=== PATIENT | female | born 1990 | race Caucasian/White ===

== ENCOUNTER 2017-03-24 00:10 | Emergency (ER) | payer SELFPAY ==
[2017-03-24 00:53] VITALS: BP 127/69; BMI 34.7
[2017-03-24] MEDS ORDERED: LEVSIN/MAALOX/LIDOC VISC PO ONE (02:40)
--- NOTE | 2017-03-24 02:44 | DR.GENAD ---
HPI - PCP Primary Care Physician: NLD - Complaint/Symptoms Chief Complaint Doctors Comments: Patient complains of epigastric gas pain earlier tonight that has gotten better since coming to the emergency room. states she was having sharp pain in the epigastric area that radiates to the right rib with pain being 3 0f 10 presently that was 6 of 10 when she got to the emergency room. States she has had pain like this before and it was gas. States she is unsure of her last period and that she does not know if she is . She denies dysuria, hematuria, cold, cough, fever or chills. Chief Complaint:: Patient states "I am pretty sure that it is gas. This is the third time that this has happened in the past 3 days. It was so bad earlier that I couldn't breathe. I can move it around. It feels a little better but it' s not going away. It hurts worse when I take a deep breath. Self Treatment fo Chief Complaint: I have been trying to "burp and fart" but it doesn't really help. I have tried drinking soda but that didn't help either. Patient stated that she has had 2 episodes of nausea and vomiting with pain. - Nurses notes reviewed Nurses Notes Review: Yes - Source History Provided: Patient - Mode of Arrival Mode of Arrival: Ambulatory - Timing Onset of Chief Complaint: 03/24/17 Came on: Gradually - Duration Duration: Intermittent How lon Duration: Hours - Location Location: epigastric and RUQ pain - Severity Severity: Moderate - Modifying Factors Worsens:: nothing Improves:: nothing PMH - PMH Past Medical History: No Past Surgical History: Yes Surgical History: Past Surgical History Comment: x 2 - Family History History of Family Medical Conditions: Yes Family Medical History: Hypertension - Social History Does patient currently use any type of tobacco product: Yes Have you used tobacco products in the last 12 months: Yes Type of Tobacco Use: Cigarettes Does any household member use tobacco: No Alcohol Use: None Do you use any recreational Drugs:: No Lives With: Family Lives Where: Home - infectious screening In the last 2 months have you had wt loss of >10#?: NO Have you had fever, night sweats or hemotysis?: No Have you traveled outside the country in the last 6 months?: No Isolation: Standard ROS - Review of Systems Constitutional: No Symptoms Reported Eyes: No Symptoms Reported ENTM: No Symptoms Reported Respiratoy: No Symptoms Reported Cardiovascular: No Symptoms Reported Gastrointestinal/Abdominal: No Symptoms Reported, Abdominal Pain (epigastric pain) Genitourinary: No Symptoms Reported. negative: See HPI, Discharge, Dysuria, Frequency, Hematuria, Pain, Bleeding, Other Neurological: No Symptoms Reported Musculoskeletal: No Symptoms Reported Integumentary: No Symptoms Reported Hematologic/Lymphatic: No Symptoms Reported Endocrine: No Symptoms Reported Psychiatric: No Symptoms Reported. negative: See HPI, Anxiety, Depression, Hallucinations, Excessive crying, Suicidal, Other PE - Vital Signs Vitals: Temperature 98.9 F Pulse Rate 54 Respiratory Rate 20 Blood Pressure 127/69 O2 Sat by Pulse Oximetry 97 - General Limitations: No Limitations General Appearance: Alert, In Distress (mild) - Head Head Exam: Normal Inspection, Atraumatic, Normocephalic - Eyes Eye exam: Normal Appearance, PERRL, EOMI. negative: Scleral Icterus, Conjunctival Injection, Nystagmus, Miosis, Mydrasis, Periorbital Swelling, Periorbital Tenderness, Other - ENT ENT Exam: Normal Exam, Normal Oropharynx, Normal External Ear Exam, Mucous Membranes Moist, TM's Normal Bilaterally External Ear Exam: Normal External Inspection TM/Canal Exam: Bilateral Normal Nose Exam: Normal Nose Exam Mouth Exam: Normal Inspection Throat Exam: Normal Inspection. negative: Tonsillar Erythema, Tonsillomegaly, Tonsillar Exudate, R Peritonsillar Mass, L Peritonsillar Mass, Muffled Voice, Other - Neck Neck Exam: Normal Inspection, Full ROM, Trachea Midline. negative: Tenderness, Meningismus, Lymphadenopathy, Thyromegaly, Other - Chest Chest Inspection: Normal Inspection, Symmetric Chest Wall Rise. negative: Tenderness, Rash, Abscess, Other - Respiratory Respiratory Exam: Normal Lung Sounds Bilat Respiratory Exam: Bilateral Clear to Auscultation - Cardiovascular Cardiovascular Exam: Regular Rate, Normal Rhythm, Normal Heart Sounds. negative : Bradycardia, Tachycardia, Irregular Rhythm, Systolic Murmur, Diastolic Murmur , Rubs, Gallop, Clicks, JVD, +S1, +S2, +S3, +S4, Other - Abdominal Exam Abdominal Exam: Normal Inspection, Normal Bowel Sounds, Soft, Tenderness ( epigastric tenderness) Abdominal Tenderness: Epigastrium, Suprapubic, Mild - Extremities Extremities Exam: Normal Inspection, Full ROM, Normal Capillary Refill. negative: Tenderness, Edema, Joint Swelling, Calf Tenderness, Other - Back Back Exam: Normal Inspection, Full ROM. negative: Tenderness, (R) CVA Tenderness, (L) CVA Tenderness, Muscle Spasm, Paraspinal Tenderness, Vertebral Tenderness, Rashes, (R) Sciatic Notch Tenderness, (L) Sciatic Notch Tendern, (R ) Straight Leg Raise, (L) Straight Leg Raise, Other - Neurologic Neurological Exam: Alert, Oriented X3, CN II-XII Intact, Normal Gait, Reflexes Normal - Psychiatric Psychiatric Exam: Normal Affect, Normal Mood. negative: Depressed, Agitated, Anxious, Flat Affect, Manic, Homicidal Ideation, Suicidal Ideation, Other - Skin Skin Exam: Warm, Dry, Intact, Normal Color ROR - Labs Reviewed Laboratory Results Reviewed?: Yes (All labs and x-ray results reviewed and discussed with patient) Result Diagrams: 03/24/17 02:55 03/24/17 02:55 Laboratory: WBC 9.9 X10^3/uL (3.6-10.0) 03/24/17 02:55 RBC 4.45 X10^6/uL (3.5-5.4) 03/24/17 02:55 Hgb 12.7 g/dL (12.0-16.0) 03/24/17 02:55 Hct 37.3 % (36.0-47.0) 03/24/17 02:55 MCV 83.8 fL (80.0-100.0) 03/24/17 02:55 MCH 28.5 pg (27.0-34.0) 03/24/17 02:55 MCHC 34.0 g/dL (33.0-35.0) 03/24/17 02:55 RDW 13.6 % (11.6-16.5) 03/24/17 02:55 Plt Count 180 X10^3/uL (150.0-450.0) 03/24/17 02:55 MPV 10.3 fL (7.4-11.0) 03/24/17 02:55 Neut % 63.6 % (42.0-75.0) 03/24/17 02:55 Lymph % 27.5 % (21.0-51.0) 03/24/17 02:55 [place] % 4.5 % (0.0-13.0) 03/24/17 02:55 Eos % 3.1 % (0.9-2.9) H 03/24/17 02:55 Baso % 1.3 % (0.2-1.0) H 03/24/17 02:55 Neut # 6.3 x10^3/uL (2.2-4.8) H 03/24/17 02:55 Lymph # 2.7 X10^3/uL (1.3-2.9) 03/24/17 02:55 [place] # 0.4 x10^3/uL (0.3-0.8) 03/24/17 02:55 Eos # 0.3 x10^3/uL (0.0-0.2) H 03/24/17 02:55 Baso # 0.1 X10^3/uL (0.0-0.1) 03/24/17 02:55 Absolute Nucleated RBC 0.0 /100WBC 03/24/17 02:55 Sodium 142 mmol/L (136-145) 03/24/17 02:55 Corrected Sodium TNP 03/24/17 02:55 Potassium 4.3 mmol/L (3.5-5.1) 03/24/17 02:55 Chloride 107 mmol/L (98-107) 03/24/17 02:55 Carbon Dioxide 28.8 mmol/L (21-32) 03/24/17 02:55 BUN 8 mg/dL (7-18) 03/24/17 02:55 Creatinine 0.62 mg/dL (0.55-1.02) 03/24/17 02:55 Est GFR (MDRD) Af Amer > 60 (>60) 03/24/17 02:55 Est GFR (MDRD) Non-Af > 60 (>60) 03/24/17 02:55 Glucose 90 mg/dL (65-99) 03/24/17 02:55 Calcium 8.8 mg/dL (8.5-10.1) 03/24/17 02:55 Corrected Calcium TNP 03/24/17 02:55 Total Bilirubin 0.40 mg/dL (0.2-1.0) 03/24/17 02:55 AST 14 Units/L (15-37) L 03/24/17 02:55 ALT 21 Units/L (12-78) 03/24/17 02:55 Alkaline Phosphatase 67 Units/L (46-116) 03/24/17 02:55 Total Protein 6.8 g/dL (6.4-8.2) 03/24/17 02:55 Albumin 3.8 g/dL (3.4-5.0) 03/24/17 02:55 Globulin 3.0 g/dL (2.5-4.5) 03/24/17 02:55 Albumin/Globulin Ratio 1.3 Ratio (1.1-2.1) 03/24/17 02:55 Amylase 45 Units/L (25-115) 03/24/17 02:55 Lipase 110 Units/L (73-393) 03/24/17 02:55 HCG, Qual Negative <10 mIU/mL 03/24/17 02:55 H. pylori IgG Antibody Positive (NEGATIVE) A 03/24/17 02:55 - XRAY XRAY Interpreted by: Radiologist (Abdominal series: No acute abdominal pathology identified ) - Diagnosis Discharge Problem: Helicobacter positive gastritis Abdominal pain Qualifiers: Abdominal location: epigastric Qualified Code(s): R10.13 - Epigastric pain - Discharge Plan Disposition: 01 HOME, SELF-CARE Condition: Stable Prescriptions: Bismuth Subsalicylate [Pepto-Bismol] 262 mg PO QID PRN #120 [place] PRN Reason: Metronidazole [FLAGYL 500 MG *] 500 mg PO TID PRN #42 tab PRN Reason: Ranitidine HCl [ZANTAC TAB 150 MG *] 150 mg PO BID #60 tab Tetracycline HCl 500 mg PO TID PRN #42 cap PRN Reason: - Follow ups/Referrals Follow ups/Referrals: NFD,None [Primary Care Provider] - 3 days GRACIELA LAURENT [STAFF PHYSICIAN] - 3 days - Instructions Instructions: Gastritis, Adult, [id number], Abdominal Pain, Adult, Easy-to- Read, Helicobacter Pylori Antibodies Test
[2017-03-24 03:04] LABS: BASOPHILS # (AUTO) 0.1 X10^3/uL (0.0-0.1); BASOPHILS % (AUTO) 1.3 % (0.2-1.0); EOSINOPHILS # (AUTO) 0.3 x10^3/uL (0.0-0.2); EOSINOPHILS % (AUTO) 3.1 % (0.9-2.9); HEMATOCRIT 37.3 % (36.0-47.0); HEMOGLOBIN 12.7 g/dL (12.0-16.0); LYMPHOCYTES # (AUTO) 2.7 X10^3/uL (1.3-2.9); LYMPHOCYTES % (AUTO) 27.5 % (21.0-51.0); MEAN CORPUSCULAR HEMOGLOBIN 28.5 pg (27.0-34.0); MEAN CORPUSCULAR VOLUME 83.8 fL (80.0-100.0); MEAN PLATELET VOLUME 10.3 fL (7.4-11.0); MONOCYTES # (AUTO) 0.4 x10^3/uL (0.3-0.8); MONOCYTES % (AUTO) 4.5 % (0.0-13.0); NEUTROPHILS # (AUTO) 6.3 x10^3/uL (2.2-4.8); NEUTROPHILS % (AUTO) 63.6 % (42.0-75.0); PLATELET COUNT 180 X10^3/uL (150.0-450.0); RED BLOOD COUNT 4.45 X10^6/uL (3.5-5.4); RED CELL DISTRIBUTION WIDTH 13.6 % (11.6-16.5); WHITE BLOOD COUNT 9.9 X10^3/uL (3.6-10.0)
[2017-03-24 03:08] LABS: SERUM PREGNANCY TEST, QUAL NEGATIVE <10 mIU/mL
[2017-03-24 03:15] LABS: ALANINE AMINOTRANSFERASE 21 Units/L (12-78); ALBUMIN 3.8 g/dL (3.4-5.0); ALKALINE PHOSPHATASE 67 Units/L (46-116); AMYLASE 45 Units/L (25-115); ASPARTATE AMINO TRANSFERASE 14 Units/L (15-37); BLOOD UREA NITROGEN 8 mg/dL (7-18); CALCIUM 8.8 mg/dL (8.5-10.1); CARBON DIOXIDE 28.8 mmol/L (21-32); CHLORIDE 107 mmol/L (98-107); CREATININE 0.62 mg/dL (0.55-1.02); GLUCOSE 90 mg/dL (65-99); LIPASE 110 Units/L (73-393); SODIUM 142 mmol/L (136-145); TOTAL PROTEIN 6.8 g/dL (6.4-8.2); eGFR BLACK RACES > 60 (>60); eGFR NON BLACK RACES > 60 (>60)
--- NOTE | 2017-03-24 03:57 | RAD ---
Abdominal series with single view chest Indication: Right upper quadrant abdominal pain Comparison: None Findings: The cardiac silhouette is unremarkable. The lungs are clear. The bowel gas pattern is norm al. No free air identified. The liver appears enlarged, although this may be projectional. Impression: No acute abdominal pathology identified. Possible hepatomegaly. Consider right upper quadrant ultrasound if there is concern for cholecystitis and to evaluate for h epatomegaly, as indicated. Reported By:
== END 2017-03-24 05:00 | disposition home or self-care (01) ==
LOC: ER 00:10
DX: R10.13 Epigastric pain (principal); B96.81 Helicobacter pylori [H. pylori] as the cause of diseases classified elsewhere
CPT/HCPCS: 36415; 74022; 80053; 82150; 83690; 84703; 85025; 86677; 99283

== ENCOUNTER 2017-03-29 03:49 | Emergency (ER) | payer MEDICAID ==
[2017-03-29] MEDS ORDERED: TORADOL 30 MG VIAL IM ONE (04:04)
--- NOTE | 2017-03-29 04:05 | DR.GENAD ---
HPI - PCP Primary Care Physician: NFD - Complaint/Symptoms Chief Complaint Doctors Comments: Patient was diagnosed with H pylori gastritis on 03.24.17 she states that she is taking medication given to by Yonis WILKINS. Her stomach is still hurting although she is taking the medication. Chief Complaint:: "I was diagnosed the other day with H-pylori and I have been having pain in my stomach. I came to the ER the other day about it but they forgot about me. I was here for 5 hours so I left. Tonight I was woke up from chest pain and abdomen pain that was way worse than before." - Source History Provided: Patient - Mode of Arrival Mode of Arrival: Stretcher - Timing Onset of Chief Complaint: 03/22/17 PMH - PMH Past Medical History: No Past Surgical History: Yes Surgical History: - Family History History of Family Medical Conditions: Yes Family Medical History: Hypertension - Social History Does patient currently use any type of tobacco product: Yes Have you used tobacco products in the last 12 months: Yes Type of Tobacco Use: Cigarettes Alcohol Use: None Do you use any recreational Drugs:: No Lives With: Significant Other Lives Where: Home - infectious screening In the last 2 months have you had wt loss of >10#?: NO Have you had fever, night sweats or hemotysis?: No Have you traveled outside the country in the last 6 months?: No Isolation: Standard ROS - Review of Systems Eyes: No Symptoms Reported ENTM: No Symptoms Reported Respiratoy: No Symptoms Reported Cardiovascular: No Symptoms Reported Gastrointestinal/Abdominal: Abdominal Pain Genitourinary: No Symptoms Reported Neurological: No Symptoms Reported Musculoskeletal: No Symptoms Reported Integumentary: No Symptoms Reported Hematologic/Lymphatic: No Symptoms Reported Endocrine: No Symptoms Reported Psychiatric: No Symptoms Reported All Other Systems: Reviewed and Negative PE - Vital Signs Vitals: Temperature 98.2 F Pulse Rate 62 Respiratory Rate 22 Blood Pressure 139/89 O2 Sat by Pulse Oximetry 100 - General Limitations: No Limitations General Appearance: Alert, In No Apparent Distress - Eyes Eye exam: Normal Appearance, PERRL, EOMI - ENT ENT Exam: Normal Exam External Ear Exam: Normal External Inspection TM/Canal Exam: Bilateral Normal Nose Exam: Normal Nose Exam Mouth Exam: Normal Inspection Throat Exam: Normal Inspection - Neck Neck Exam: Normal Inspection, Full ROM - Chest Chest Inspection: Normal Inspection - Respiratory Respiratory Exam: Normal Lung Sounds Bilat Respiratory Exam: Bilateral Clear to Auscultation - Cardiovascular Cardiovascular Exam: Regular Rate, Normal Rhythm - Abdominal Exam Abdominal Exam: Normal Inspection Abdominal Tenderness: negative: RUQ, RLQ, LUQ, LLQ, Epigastrium, Suprapubic, Diffuse, Mild, Moderate, Severe, Other - Extremities Extremities Exam: Normal Inspection - Back Back Exam: Normal Inspection, Full ROM - Neurologic Neurological Exam: Alert, Oriented X3, CN II-XII Intact - Psychiatric Psychiatric Exam: Agitated - Skin Skin Exam: Warm, Dry, Intact - Diagnosis Discharge Problem: Helicobacter positive gastritis - Discharge Plan Condition: Stable - Follow ups/Referrals Follow ups/Referrals: NFD,None [Primary Care Provider] - 3 days - Instructions
[2017-03-29] MEDS ORDERED: TORADOL 30 MG VIAL ONE (04:06)
[2017-03-29 04:07] VITALS: BP 139/89; BMI 35.6
== END 2017-03-29 04:18 | disposition home or self-care (01) ==
LOC: ER 03:49
DX: R10.84 Generalized abdominal pain (principal); B96.81 Helicobacter pylori [H. pylori] as the cause of diseases classified elsewhere
CPT/HCPCS: 96374; 96375; 99282; 99283; J1885

== ENCOUNTER 2017-05-14 09:03 | Emergency (ER) | payer MEDICAID ==
[2017-05-14 09:05] VITALS: BP 135/76; BMI 34.7
--- NOTE | 2017-05-14 09:40 | ED.ABDFE ---
HPI - Time seen Time seen: 09:30 - PCP Primary Care Physician: LIBBY - HPI Comment HPI Comment: worse today. may be due to h pylori. was recently treated for h pylori. no fever or dysuria. - Complaint Chief Complaint Doctors Comments: epigastric and upper abdominal pain with nausea times one day. Chief Complaint:: PT. C/O EPIGASTRIC PAIN. SHE STATES SHE HAD H. PYLORI ABOUT A MONTH AGO AND WAS TREATED. SHE THINKS SHE MAY HAVE IT AGAIN. - Nurses notes reviewed Nurses Notes Review: Yes - Source History Provided: Patient - Mode of arrival Mode of Arrival: Ambulatory - Timing Onset of Chief Complaint: 05/13/17 Came on: Suddenly - Duration Duration: Constant Duration: Days - Location Location: RUQ, LUQ, Epigastric - Severity Severity: Moderate - Quality Quality: Sharp - Context Onset: Suddenly History of: Similar pain (dx) - Modifying Worsening Factors: Nothing Improving Factors: Nothing - Associated signs and symptoms Associated Signs and Symptoms: Nausea PMH - PMH Past Medical History: No Past Surgical History: Yes Surgical History: - Family History History of Family Medical Conditions: Yes Family Medical History: Hypertension - Social History Does patient currently use any type of tobacco product: Yes Have you used tobacco products in the last 12 months: Yes Type of Tobacco Use: Cigarettes Does any household member use tobacco: No Alcohol Use: None Do you use any recreational Drugs:: No Lives With: Significant Other Lives Where: Home - infectious screening In the last 2 months have you had wt loss of >10#?: NO Have you had fever, night sweats or hemotysis?: No Have you traveled outside the country in the last 6 months?: No Isolation: Standard ROS - Review of Systems Constitutional: No Symptoms Reported Eyes: No Symptoms Reported ENTM: No Symptoms Reported Respiratoy: No Symptoms Reported Cardiovascular: No Symptoms Reported Gastrointestinal/Abdominal: Abdominal Pain, Nausea, Vomiting Genitourinary: No Symptoms Reported. negative: Dysuria, Frequency, Hematuria Neurological: No Symptoms Reported Musculoskeletal: No Symptoms Reported Integumentary: No Symptoms Reported Hematologic/Lymphatic: No Symptoms Reported Endocrine: No Symptoms Reported All Other Systems: Reviewed and Negative PE - Vital Signs Vitals: Temperature 97.6 F Pulse Rate 66 Respiratory Rate 22 Blood Pressure 135/76 O2 Sat by Pulse Oximetry 100 - General Limitations: No Limitations General Appearance: Alert - Head Head Exam: Normal Inspection - Eyes Eye exam: Normal Appearance - ENT ENT Exam: Normal External Ear Exam - Neck Neck Exam: Trachea Midline - Chest Chest Inspection: Symmetric Chest Wall Rise - Respiratory Respiratory Exam: Normal Lung Sounds Bilat Respiratory Exam: Bilateral Clear to Auscultation - Cardiovascular Cardiovascular Exam: Regular Rate, Normal Rhythm, Normal Heart Sounds - Abdominal Exam Abdominal Exam: Normal Bowel Sounds, Soft, Tenderness Abdominal Tenderness: RUQ, LUQ, Epigastrium, Moderate - Rectal Rectal Exam: Deferred - Back Back Exam: Normal Inspection - Extremeties Extremities Exam: Normal Inspection - External Exam: Female: Deferred : Speculum Exam (Female): Deferred : Bimanual Exam (female): Deferred - Neurologic Neurological Exam: Alert, Oriented X3 - Psychiatric Psychiatric Exam: Normal Affect, Normal Mood - Skin Skin Exam: Normal Color MDM - Differential Diagnosis Differential Diagnosis- Considerations may include:: Bowel Obstruction, Cholcystitis, Cholelethiasis, Diverticular disease, Gastritus/PUD, Inflammatory BD, Ovarian cyst/torsion, Pancreatitis, Urinary tract infection, Urolithiasis Course - Treatment Treatment: SEE ORDERS - Education/Counseling Education/Counseling: Patient, Education Educated On: Diagnosis, Needs for Follow Up ROR - Labs Reviewed Laboratory Results Reviewed?: Yes Result Diagrams: 05/14/17 09:55 05/14/17 09:55 Laboratory: WBC 5.3 X10^3/uL (3.6-10.0) 05/14/17 09:55 RBC 4.89 X10^6/uL (3.5-5.4) 05/14/17 09:55 Hgb 13.9 g/dL (12.0-16.0) 05/14/17 09:55 Hct 40.8 % (36.0-47.0) 05/14/17 09:55 MCV 83.4 fL (80.0-100.0) 05/14/17 09:55 MCH 28.5 pg (27.0-34.0) 05/14/17 09:55 MCHC 34.2 g/dL (33.0-35.0) 05/14/17 09:55 RDW 13.2 % (11.6-16.5) 05/14/17 09:55 Plt Count 175 X10^3/uL (150.0-450.0) 05/14/17 09:55 MPV 10.7 fL (7.4-11.0) 05/14/17 09:55 Neut % 52.5 % (42.0-75.0) 05/14/17 09:55 Lymph % 35.9 % (21.0-51.0) 05/14/17 09:55 [place] % 7.3 % (0.0-13.0) 05/14/17 09:55 Eos % 3.4 % (0.9-2.9) H 05/14/17 09:55 Baso % 0.9 % (0.2-1.0) 05/14/17 09:55 Neut # 2.8 x10^3/uL (2.2-4.8) 05/14/17 09:55 Lymph # 1.9 X10^3/uL (1.3-2.9) 05/14/17 09:55 [place] # 0.4 x10^3/uL (0.3-0.8) 05/14/17 09:55 Eos # 0.2 x10^3/uL (0.0-0.2) 05/14/17 09:55 Baso # 0.0 X10^3/uL (0.0-0.1) 05/14/17 09:55 Absolute Nucleated RBC 0.1 /100WBC 05/14/17 09:55 Sodium 139 mmol/L (136-145) 05/14/17 09:55 Corrected Sodium TNP 05/14/17 09:55 Potassium 4.3 mmol/L (3.5-5.1) 05/14/17 09:55 Chloride 107 mmol/L (98-107) 05/14/17 09:55 Carbon Dioxide 28.6 mmol/L (21-32) 05/14/17 09:55 BUN 14 mg/dL (7-18) 05/14/17 09:55 Creatinine 0.59 mg/dL (0.55-1.02) 05/14/17 09:55 Est GFR (MDRD) Af Amer > 60 (>60) 05/14/17 09:55 Est GFR (MDRD) Non-Af > 60 (>60) 05/14/17 09:55 Glucose 90 mg/dL (65-99) 05/14/17 09:55 Calcium 8.4 mg/dL (8.5-10.1) L 05/14/17 09:55 Corrected Calcium TNP 05/14/17 09:55 Total Bilirubin 0.30 mg/dL (0.2-1.0) 05/14/17 09:55 AST 11 Units/L (15-37) L 05/14/17 09:55 ALT 20 Units/L (12-78) 05/14/17 09:55 Alkaline Phosphatase 82 Units/L (46-116) 05/14/17 09:55 Total Protein 7.0 g/dL (6.4-8.2) 05/14/17 09:55 Albumin 3.7 g/dL (3.4-5.0) 05/14/17 09:55 Globulin 3.3 g/dL (2.5-4.5) 05/14/17 09:55 Albumin/Globulin Ratio 1.1 Ratio (1.1-2.1) 05/14/17 09:55 Amylase 49 Units/L (25-115) 05/14/17 09:55 Lipase 148 Units/L (73-393) 05/14/17 09:55 HCG, Qual Negative <10 mIU/mL 05/14/17 09:55 Specimen Type Clean catch urine 05/14/17 10:00 Urine Color Yellow (YELLOW) 05/14/17 10:00 Urine Appearance Clear (CLEAR) 05/14/17 10:00 Urine pH 6.5 (5.0 - 8.0) 05/14/17 10:00 Ur Specific [place] 1.015 (1.000-1.030) 05/14/17 10:00 Urine Protein Negative (NEGATIVE) 05/14/17 10:00 Urine Glucose (UA) Negative (NEGATIVE) 05/14/17 10:00 Urine Ketones Negative (NEGATIVE) 05/14/17 10:00 Urine Occult Blood Negative (NEGATIVE) 05/14/17 10:00 Urine Nitrite Negative (NEGATIVE) 05/14/17 10:00 Urine Bilirubin Negative (NEGATIVE) 05/14/17 10:00 Urine Urobilinogen Normal (NORMAL) 05/14/17 10:00 Ur Leukocyte Esterase Negative (NEGATIVE) 05/14/17 10:00 Urine RBC None seen /HPF (NEGATIVE) 05/14/17 10:00 Urine WBC None seen /HPF (NEGATIVE) 05/14/17 10:00 Ur Squamous Epith Cells Rare /HPF (NEGATIVE) 05/14/17 10:00 Urine Bacteria Negative /HPF (NEGATIVE) 05/14/17 10:00 Ur Culture Indicated? No/not indicated 05/14/17 10:00 - XRAY XRAY Interpreted by: Radiologist XRAY Findings: REPORT DISCUSS WITH PATIENT. - Diagnosis Discharge Problem: Abdominal pain Qualifiers: Abdominal location: upper abdomen, unspecified Qualified Code(s): R10.10 - Upper abdominal pain, unspecified Cholelithiasis Qualifiers: Cholelithiasis location: gallbladder Cholecystitis presence: without cholecystitis Biliary obstruction: with biliary obstruction Qualified Code(s): K80.21 - Calculus of gallbladder without cholecystitis with obstruction - Discharge Plan Disposition: 01 HOME, SELF-CARE Condition: Stable Prescriptions: Acetaminophen with Codeine [Tylenol/Codeine #3 300-30 mg] 1 tab PO Q4-6H PRN # 15 tab PRN Reason: Pain Ranitidine HCl [ZANTAC TAB 150 MG *] 150 mg PO BID #60 tab - Follow ups/Referrals Follow ups/Referrals: NFD,None [Primary Care Provider] - 3 days Jaron Noe [STAFF PHYSICIAN] - 3 days - Instructions Instructions: Cholelithiasis, Abdominal Pain, Adult, [id number] Additional Instructions: return to ed if worse.
[2017-05-14] MEDS ORDERED: LEVSIN/MAALOX/LIDOC VISC PO ONE (09:42)
[2017-05-14] MEDS ORDERED: PEPCID TAB 20 MG PO ONE (09:43)
[2017-05-14] MEDS ORDERED: LEVSIN/MAALOX/LIDOC VISC ONE (09:45)
[2017-05-14] MEDS ORDERED: PEPCID TAB 20 MG ONE (09:45)
[2017-05-14 10:11] LABS: BILIRUBIN,URINE NEGATIVE (NEGATIVE); BLOOD/HEMOGLOBIN,URINE NEGATIVE (NEGATIVE); GLUCOSE, URINE NEGATIVE (NEGATIVE); KETONES,URINE NEGATIVE (NEGATIVE); LEUKOCYTE ESTERASE ,URINE NEGATIVE (NEGATIVE); NITRITES,URINE NEGATIVE (NEGATIVE); PH,URINE 6.5 (5.0 - 8.0); PROTEIN,URINE NEGATIVE (NEGATIVE); UROBILINOGEN,URINE NORMAL (NORMAL)
[2017-05-14 10:13] LABS: BASOPHILS % (AUTO) 0.9 % (0.2-1.0); EOSINOPHILS # (AUTO) 0.2 x10^3/uL (0.0-0.2); EOSINOPHILS % (AUTO) 3.4 % (0.9-2.9); HEMATOCRIT 40.8 % (36.0-47.0); HEMOGLOBIN 13.9 g/dL (12.0-16.0); LYMPHOCYTES # (AUTO) 1.9 X10^3/uL (1.3-2.9); LYMPHOCYTES % (AUTO) 35.9 % (21.0-51.0); MEAN CORPUSCULAR HEMOGLOBIN 28.5 pg (27.0-34.0); MEAN CORPUSCULAR HGB CONC 34.2 g/dL (33.0-35.0); MEAN CORPUSCULAR VOLUME 83.4 fL (80.0-100.0); MEAN PLATELET VOLUME 10.7 fL (7.4-11.0); MONOCYTES # (AUTO) 0.4 x10^3/uL (0.3-0.8); MONOCYTES % (AUTO) 7.3 % (0.0-13.0); NEUTROPHILS # (AUTO) 2.8 x10^3/uL (2.2-4.8); NEUTROPHILS % (AUTO) 52.5 % (42.0-75.0); PLATELET COUNT 175 X10^3/uL (150.0-450.0); RED BLOOD COUNT 4.89 X10^6/uL (3.5-5.4); RED CELL DISTRIBUTION WIDTH 13.2 % (11.6-16.5); WHITE BLOOD COUNT 5.3 X10^3/uL (3.6-10.0)
[2017-05-14 10:23] LABS: ALANINE AMINOTRANSFERASE 20 Units/L (12-78); ALBUMIN 3.7 g/dL (3.4-5.0); ALKALINE PHOSPHATASE 82 Units/L (46-116); AMYLASE 49 Units/L (25-115); ASPARTATE AMINO TRANSFERASE 11 Units/L (15-37); BLOOD UREA NITROGEN 14 mg/dL (7-18); CALCIUM 8.4 mg/dL (8.5-10.1); CARBON DIOXIDE 28.6 mmol/L (21-32); CHLORIDE 107 mmol/L (98-107); CREATININE 0.59 mg/dL (0.55-1.02); GLUCOSE 90 mg/dL (65-99); LIPASE 148 Units/L (73-393); SERUM PREGNANCY TEST, QUAL NEGATIVE <10 mIU/mL; SODIUM 139 mmol/L (136-145); eGFR BLACK RACES > 60 (>60); eGFR NON BLACK RACES > 60 (>60)
--- NOTE | 2017-05-14 10:25 | CT ---
HISTORY: Right upper and middle abdominal pain Study: CT abdomen and pelvis without contrast Comparison: None Technique: Multiple axial images of the abdomen and pelvis were obtained from the lung bases to the pubic symph ysis without the administration of IV contrast. Sagittal and coronal reformations were provided. Findings: The visualized portions of the lung bases are unremarkable. The liver, spleen, pancreas, kidneys, a nd adrenal glands are unremarkable in their CT appearance. There are numerous gallstones in a nondis tended gallbladder. There is fat and or air in many of the small stones that are only faintly radiop aque. There is no biliary dilatation.. No significant mesenteric lymphadenopathy or stranding can b e observed. No free fluid or free air is seen within the abdomen. The appendix is normal. The uter us is normal . There is no adnexal mass. No bowel wall thickening or bowel dilatation is present. T he colon is unremarkable. Specifically, there is no diverticulosis noted within the sigmoid colon. The urinary bladder is grossly unremarkable. The bony structures are grossly intact. IMPRESSION: 1. Cholelithiasis Reported By:
[2017-05-14 10:26] LABS: APPEARANCE,URINE CLEAR (CLEAR); BACTERIA,URINE NEGATIVE /HPF (NEGATIVE); COLOR,URINE YELLOW (YELLOW); RBC,URINE NONE SEEN /HPF (NEGATIVE); SQUAMOUS EPITHELIAL CELL,UR RARE /HPF (NEGATIVE)
== END 2017-05-14 11:11 | disposition home or self-care (01) ==
LOC: ER 09:11
DX: K80.70 Calculus of gallbladder and bile duct without cholecystitis without obstruction (principal); R10.13 Epigastric pain
CPT/HCPCS: 36415; 74176; 80053; 81001; 82150; 83690; 84703; 85025; 99282; 99283

== ENCOUNTER 2018-03-09 15:21 | Emergency (ER) | payer MEDICAID, OTHER ==
[2018-03-09 15:32] VITALS: BP 139/87; BMI 32.9
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
[2018-03-09] MEDS ORDERED: TORADOL 60 MG VIAL IM ONE (15:41)
[2018-03-09] MEDS ORDERED: TORADOL 60 MG VIAL ONE (15:43)
[2018-03-09 16:31] LABS: SERUM PREGNANCY TEST, QUAL NEGATIVE <10 mIU/mL
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
== END 2018-03-09 17:17 | disposition home or self-care (01) ==
LOC: ER 15:24
DX: S00.03XA Contusion of scalp, initial encounter (principal); S00.83XA Contusion of other part of head, initial encounter; Y93.9 Activity, unspecified; Y92.89 Other specified places as the place of occurrence of the external cause; Y04.0XXA Assault by unarmed brawl or fight, initial encounter; G44.89 Other headache syndrome
CPT/HCPCS: 36415; 70450; 70486; 84703; 96372; 99282; J1885

== ENCOUNTER 2018-03-12 07:06 | Emergency (ER) | payer OTHER ==
[2018-03-12 07:16] VITALS: BP 133/94; BMI 36.2
[2018-03-12] MEDS ORDERED: TORADOL 30 MG VIAL IVP ONE (07:16)
[2018-03-12] MEDS ORDERED: TORADOL 30 MG VIAL ONE (07:19)
--- NOTE | 2018-03-12 07:26 | DR.CP ---
HPI - Time Seen Time seen: 07:15 - PCP Primary Care Physician: NFD - Complaint Chief Complaint Doctor Comments: Patient presents with complaint of right flank pain onset six hours prior to visit. She denies vomiting,or diarrhea or fever. Chief Complaint:: PT. C/O RIGHT FLANK PAIN THAT RADIATES UP UNDER RIGHT BREAST. PT. STATES "IT'S GAS." PAIN BEGAN AT 1200 AM. - Source History Provided: Patient, EMS - Mode of Arrival Mode of Arrival: EMS - Timing Onset of Chief Complaint: 03/12/18 <IRINEO WEBB - Last Filed: 03/12/18 08:19> PMH - PMH Past Medical History: No Past Surgical History: Yes Surgical History: - Family History History of Family Medical Conditions: Yes Family Medical History: Hypertension - Social History Does patient currently use any type of tobacco product: Yes Have you used tobacco products in the last 12 months: Yes Type of Tobacco Use: Cigarettes Does any household member use tobacco: Yes Alcohol Use: None Do you use any recreational Drugs:: No Lives With: Significant Other Lives Where: Home - infectious screening In the last 2 months have you had wt loss of >10#?: NO Have you had fever, night sweats or hemotysis?: No Have you traveled outside the country in the last 6 months?: No Isolation: Standard <IRINEO WEBB - Last Filed: 03/12/18 08:19> ROS - Review of Systems Constitutional: negative: Diaphoresis Eyes: No Symptoms Reported ENTM: No Symptoms Reported Respiratoy: No Symptoms Reported Cardiovascular: No Symptoms Reported Gastrointestinal/Abdominal: No Symptoms Reported Genitourinary: No Symptoms Reported Neurological: No Symptoms Reported Musculoskeletal: No Symptoms Reported Integumentary: No Symptoms Reported Hematologic/Lymphatic: No Symptoms Reported Endocrine: No Symptoms Reported Psychiatric: No Symptoms Reported All Other Systems: Reviewed and Negative <IRINEO WEBB - Last Filed: 03/12/18 08:19> PE - General General Appearance: Alert, In No Apparent Distress - Head Head Exam: Normal Inspection, Atraumatic - Eyes Eye exam: Normal Appearance, PERRL, EOMI - ENT ENT Exam: Normal Exam - Chest Chest Inspection: Normal Inspection, Symmetric Chest Wall Rise - Respiratory Respiratory Exam: Normal Lung Sounds Bilat Respiratory Exam: Bilateral Clear to Auscultation - Cardiovascular Cardiovascular Exam: Regular Rate, Normal Rhythm Pulse: Normal Edema: Normal - Abdominal Exam Abdominal Exam: Normal Inspection, Normal Bowel Sounds Abdominal Tenderness: RUQ - Extremities Extremities Exam: Normal Inspection, Full ROM - Back Back Exam: Normal Inspection, Full ROM - Neurologic Neurological Exam: Alert, Oriented X3, CN II-XII Intact - Psychiatric Psychiatric Exam: Normal Affect, Normal Mood, Anxious - Skin Skin Exam: Warm, Dry, Intact <IRINEO WEBB - Last Filed: 03/12/18 08:19> - Vitals Vitals: Temperature 98.3 F Pulse Rate 64 Respiratory Rate 30 Blood Pressure 133/94 O2 Sat by Pulse Oximetry 99 Course - Education/Counseling Education/Counseling: Patient, Family, Education Educated On: Diagnosis, Needs for Follow Up <RIOS AYALA - Last Filed: 03/12/18 21:36> ROR - Labs Reviewed Result Diagrams: 03/12/18 07:26 03/12/18 07:26 <IRINEO WEBB - Last Filed: 03/12/18 08:19> - Labs Reviewed Laboratory Results Reviewed?: Yes Result Diagrams: 03/12/18 07:26 03/12/18 07:26 - XRAY XRAY Interpreted by: Radiologist XRAY Findings: REPORT DISCUSS WITH PATIENT. <RIOS AYALA - Last Filed: 03/12/18 21:36> - Labs Reviewed Laboratory: WBC 9.1 X10^3/uL (3.6-10.0) 03/12/18 07:26 RBC 4.61 X10^6/uL (3.5-5.4) 03/12/18 07:26 Hgb 13.2 g/dL (12.0-16.0) 03/12/18 07:26 Hct 38.1 % (36.0-47.0) 03/12/18 07:26 MCV 82.6 fL (80.0-100.0) 03/12/18 07:26 MCH 28.6 pg (27.0-34.0) 03/12/18 07:26 MCHC 34.6 g/dL (33.0-35.0) 03/12/18 07:26 RDW 13.0 % (11.6-16.5) 03/12/18 07:26 Plt Count 212 X10^3/uL (150.0-450.0) 03/12/18 07:26 MPV 10.2 fL (7.4-11.0) 03/12/18 07: Neut % (Auto) 62.0 % (42.0-75.0) 03/12/18 07: Lymph % (Auto) 29.6 % (21.0-51.0) 03/12/18 07: [place] % (Auto) 6.0 % (0.0-13.0) 03/12/18 07: Eos % (Auto) 1.5 % (0.9-2.9) 03/12/18 07: Baso % (Auto) 0.9 % (0.2-1.0) 03/12/18 07: Neut # (Auto) 5.7 x10^3/uL (2.2-4.8) H 03/12/18 07: Lymph # (Auto) 2.7 X10^3/uL (1.3-2.9) 03/12/18 07: [place] # (Auto) 0.5 x10^3/uL (0.3-0.8) 03/12/18 07: Eos # (Auto) 0.1 x10^3/uL (0.0-0.2) 03/12/18 07: Baso # (Auto) 0.1 X10^3/uL (0.0-0.1) 03/12/18 07: Absolute Nucleated RBC 0.1 /100WBC 03/12/18 07:26 Sodium 142 mmol/L (136-145) 03/12/18 07:26 Corrected Sodium 142 mmol/L (136-145) 03/12/18 07:26 Potassium 3.7 mmol/L (3.5-5.1) 03/12/18 07: Chloride 105 mmol/L (98-107) 03/12/18 07: Carbon Dioxide 28.9 mmol/L (21-32) 03/12/18 07:26 BUN 14 mg/dL (7-18) 03/12/18 07: Creatinine 0.71 mg/dL (0.55-1.02) 03/12/18 07:26 Est GFR (MDRD) Af Amer > 60 (>60) 03/12/18 07:26 Est GFR (MDRD) Non-Af > 60 (>60) 03/12/18 07:26 Glucose 111 mg/dL (65-99) H 03/12/18 07:26 Calcium 7.6 mg/dL (8.5-10.1) L 03/12/18 07:26 Specimen Type Clean catch urine 03/12/18 07:55 Urine Color Yellow (YELLOW) 03/12/18 07:55 Urine Appearance Slightly hazy (CLEAR) 03/12/18 07:55 Urine pH 9.0 (5.0 - 8.0) 03/12/18 07:55 Ur Specific [place] 1.015 (1.000-1.030) 03/12/18 07:55 Urine Protein 2+ (NEGATIVE) 03/12/18 07:55 Urine Glucose (UA) Negative (NEGATIVE) 03/12/18 07:55 Urine Ketones Negative (NEGATIVE) 03/12/18 07:55 Urine Occult Blood Negative (NEGATIVE) 03/12/18 07:55 Urine Nitrite Negative (NEGATIVE) 03/12/18 07:55 Urine Bilirubin Negative (NEGATIVE) 03/12/18 07:55 Urine Urobilinogen Normal (NORMAL) 03/12/18 07:55 Ur Leukocyte Esterase Negative (NEGATIVE) 03/12/18 07:55 Urine RBC 0-2 /HPF (NONE SEEN) 03/12/18 07:55 Urine WBC 0-2 /HPF (NONE SEEN) 03/12/18 07:55 Ur Squamous Epith Cells Moderate /HPF (NEGATIVE) 03/12/18 07:55 Amorphous Sediment 2+ /HPF (NEGATIVE) 03/12/18 07:55 Urine Bacteria Trace /HPF (NEGATIVE) 03/12/18 07:55 Ur Culture Indicated? No/not indicated 03/12/18 07:55 <IRINEO WEBB - Last Filed: 03/12/18 08:19> <RIOS AYALA - Last Filed: 03/12/18 21:36> - Diagnosis Discharge Problem: Flank pain - Discharge Plan Disposition: 01 HOME, SELF-CARE Condition: Stable - Follow ups/Referrals Follow ups/Referrals: Jaron Noe [STAFF PHYSICIAN] - 1 day NFD,None [Primary Care Provider] - 1 day - Instructions Instructions: Flank Pain, Adult, [id number] Additional Instructions: RETURN TO ED IF WORSE.
[2018-03-12 07:35] LABS: BASOPHILS # (AUTO) 0.1 X10^3/uL (0.0-0.1); BASOPHILS % (AUTO) 0.9 % (0.2-1.0); EOSINOPHILS # (AUTO) 0.1 x10^3/uL (0.0-0.2); EOSINOPHILS % (AUTO) 1.5 % (0.9-2.9); HEMATOCRIT 38.1 % (36.0-47.0); HEMOGLOBIN 13.2 g/dL (12.0-16.0); LYMPHOCYTES # (AUTO) 2.7 X10^3/uL (1.3-2.9); LYMPHOCYTES % (AUTO) 29.6 % (21.0-51.0); MEAN CORPUSCULAR HEMOGLOBIN 28.6 pg (27.0-34.0); MEAN CORPUSCULAR HGB CONC 34.6 g/dL (33.0-35.0); MEAN CORPUSCULAR VOLUME 82.6 fL (80.0-100.0); MEAN PLATELET VOLUME 10.2 fL (7.4-11.0); MONOCYTES # (AUTO) 0.5 x10^3/uL (0.3-0.8); NEUTROPHILS # (AUTO) 5.7 x10^3/uL (2.2-4.8); PLATELET COUNT 212 X10^3/uL (150.0-450.0); RED BLOOD COUNT 4.61 X10^6/uL (3.5-5.4); WHITE BLOOD COUNT 9.1 X10^3/uL (3.6-10.0)
[2018-03-12 07:38] LABS: BLOOD UREA NITROGEN 14 mg/dL (7-18); CALCIUM 7.6 mg/dL (8.5-10.1); CARBON DIOXIDE 28.9 mmol/L (21-32); CHLORIDE 105 mmol/L (98-107); COR NA(FOR HYPERGLY) 142 mmol/L (136-145); CREATININE 0.71 mg/dL (0.55-1.02); SODIUM 142 mmol/L (136-145); eGFR BLACK RACES > 60 (>60); eGFR NON BLACK RACES > 60 (>60)
[2018-03-12] MEDS ORDERED: LR 1000 ML IV 1,000 ML IV ONE (07:58)
[2018-03-12] MEDS ORDERED: LR 1000 ML IV 1,000 ML IV SCH (08:00)
--- NOTE | 2018-03-12 08:04 | RAD ---
HISTORY: Abdominal pain Study: Flat and upright abdomen, PA chest Comparison: 03/24/2017 Findings: The abdominal gas pattern is nonspecific and nonobstructive. No pneumoperitoneum is identified. No ab normal masses or abnormal calcifications are identified. The chest is clear. IMPRESSION: Unremarkable acute abdominal series Reported By:
[2018-03-12 08:18] LABS: BILIRUBIN,URINE NEGATIVE (NEGATIVE); BLOOD/HEMOGLOBIN,URINE NEGATIVE (NEGATIVE); GLUCOSE, URINE NEGATIVE (NEGATIVE); KETONES,URINE NEGATIVE (NEGATIVE); LEUKOCYTE ESTERASE ,URINE NEGATIVE (NEGATIVE); NITRITES,URINE NEGATIVE (NEGATIVE); PROTEIN,URINE 2+ (NEGATIVE); UROBILINOGEN,URINE NORMAL (NORMAL)
[2018-03-12 08:29] LABS: APPEARANCE,URINE SLIGHTLY HAZY (CLEAR); COLOR,URINE YELLOW (YELLOW)
[2018-03-12 08:30] LABS: AMORPHOUS SEDIMENT,UR 2+ /HPF (NEGATIVE); BACTERIA,URINE TRACE /HPF (NEGATIVE); RBC,URINE 0-2 /HPF (NONE SEEN); SQUAMOUS EPITHELIAL CELL,UR MODERATE /HPF (NEGATIVE)
== END 2018-03-12 09:08 | disposition home or self-care (01) ==
LOC: ER 07:06
DX: R10.11 Right upper quadrant pain (principal)
CPT/HCPCS: 36415; 74022; 80048; 81001; 85025; 96365; 96374; 99282; 99283; A4222; J1885; J7120

== ENCOUNTER 2018-03-17 09:29 | Emergency (ER) | payer OTHER ==
[2018-03-17 09:41] VITALS: BP 154/66; BMI 34.7
[2018-03-17] MEDS ORDERED: DUONEB 0.5 MG/3 MG NEB ONE (10:02)
[2018-03-17] MEDS ORDERED: DUONEB 0.5 MG/3 MG ONE (10:14)
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
[2018-03-17] MEDS ORDERED: NS 1000 ML 1,000 ML ONE (10:17)
[2018-03-17 10:18] LABS: BASOPHILS # (AUTO) 0.1 X10^3/uL (0.0-0.1); BASOPHILS % (AUTO) 0.8 % (0.2-1.0); EOSINOPHILS # (AUTO) 0.3 x10^3/uL (0.0-0.2); HEMATOCRIT 40.3 % (36.0-47.0); HEMOGLOBIN 14.1 g/dL (12.0-16.0); LYMPHOCYTES # (AUTO) 2.4 X10^3/uL (1.3-2.9); LYMPHOCYTES % (AUTO) 27.6 % (21.0-51.0); MEAN CORPUSCULAR HEMOGLOBIN 29.2 pg (27.0-34.0); MEAN CORPUSCULAR HGB CONC 35.1 g/dL (33.0-35.0); MEAN CORPUSCULAR VOLUME 83.4 fL (80.0-100.0); MONOCYTES # (AUTO) 0.6 x10^3/uL (0.3-0.8); MONOCYTES % (AUTO) 6.7 % (0.0-13.0); NEUTROPHILS # (AUTO) 5.3 x10^3/uL (2.2-4.8); NEUTROPHILS % (AUTO) 61.9 % (42.0-75.0); PLATELET COUNT 216 X10^3/uL (150.0-450.0); RED BLOOD COUNT 4.84 X10^6/uL (3.5-5.4); RED CELL DISTRIBUTION WIDTH 13.2 % (11.6-16.5); WHITE BLOOD COUNT 8.6 X10^3/uL (3.6-10.0)
[2018-03-17 10:24] LABS: BLOOD UREA NITROGEN 14 mg/dL (7-18); CALCIUM 7.7 mg/dL (8.5-10.1); CHLORIDE 104 mmol/L (98-107); CREATININE 0.64 mg/dL (0.55-1.02); SODIUM 137 mmol/L (136-145); eGFR BLACK RACES > 60 (>60); eGFR NON BLACK RACES > 60 (>60)
[2018-03-17] MEDS ORDERED: NS 1000 ML 1,000 ML IV SCH (11:00)
== END 2018-03-17 11:10 | disposition home or self-care (01) ==
LOC: ER 09:45
DX: R10.13 Epigastric pain (principal); B96.81 Helicobacter pylori [H. pylori] as the cause of diseases classified elsewhere
CPT/HCPCS: 36415; 80048; 85025; 86140; 86677; 94640; 96365; 99282; 99283; A4222; J7620